=== PATIENT | male | born 1990 | race American Indian/Alaskan Native ===

== ENCOUNTER 2017-02-02 21:21 | Emergency (ER) | payer OTHER ==
[2017-02-02 23:10] VITALS: BP 123/72
[2017-02-02] MEDS ORDERED: TYLENOL PO ONE (23:12)
[2017-02-02] MEDS ORDERED: TYLENOL ONE (23:15)
--- NOTE | 2017-02-02 23:47 | XRay Report ---
FINAL REPORT PROCEDURE: XR RIBS UNILAT 2V LT TECHNIQUE: Unilateral rib radiographs, 2 views of the LEFT ribs. HISTORY: left rib pain COMPARISON: No prior studies are available for comparison. FINDINGS: Lungs: Normal. Pleural space: Normal. Pneumothorax: None. Bony thorax/ribs: No significant abnormality. IMPRESSION: Normal Examination.
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
== END 2017-02-03 04:02 | disposition home or self-care (01) ==
LOC: ED 21:21
DX: S00.87XA Other superficial bite of other part of head, initial encounter (principal); S30.810A Abrasion of lower back and pelvis, initial encounter; R07.81 Pleurodynia; R10.9 Unspecified abdominal pain; Y04.1XXA Assault by human bite, initial encounter; Y93.89 Activity, other specified; Y99.8 Other external cause status; Y92.009 Unspecified place in unspecified non-institutional (private) residence as the place of occurrence of the external cause
CPT/HCPCS: 99283

== ENCOUNTER 2017-06-19 21:10 | Emergency (ER) | payer SELFPAY | END 2017-06-19 22:58 | disposition left against medical advice (07) | LOC: ED 21:10 | DX: R42 Dizziness and giddiness (principal); Z53.21 Procedure and treatment not carried out due to patient leaving prior to being seen by health care provider ==